=== PATIENT | male | born 1990 | race Caucasian/White ===

== ENCOUNTER 2017-03-23 01:28 | Emergency (ER) | payer OTHER ==
[~2017-03-23 01:28] MED LIST: PROZ20CA OR; PROZAC PO; SUBO8TA PO; TRAZ100T OR; TRAZ50TA OR; TRAZ50TA2 PO
[2017-03-23 04:18] LABS: ANION GAP 7 MEQ/L (8-16); BLOOD UREA NITROGEN 10 MG/DL (7-18); CALCIUM LEVEL 9.1 MG/DL (8.5-10.1); CARBON DIOXIDE LEVEL 27 MEQ/L (21-32); CHLORIDE LEVEL 110 MEQ/L (98-107); CREATININE FOR GFR 1.05 MG/DL (0.70-1.30); GLOMERULAR FILTRATION RATE > 60.0 (>60); GLUCOSE, FASTING 85 MG/DL (70-105); POTASSIUM SERUM 4.2 MEQ/L (3.5-5.1); SODIUM LEVEL 144 MEQ/L (136-145)
[2017-03-23 04:19] LABS: ABG BASE EXCESS -1.2 (-2.0-2.0); ABG HCO3 24.5 MEQ/L (22.0-26.0); ABG PARTIAL PRESSURE CO2 44.3 mmHg (35.0-45.0); ABG PARTIAL PRESSURE O2 75.5 mmHg (75.0-100.0); ABG STANDARD HCO3 23.4 MEQ/L (22.0-26.0); ABG TOTAL CO2 25.8 MEQ/L (22.0-29.0)
[2017-03-23 04:21] LABS: MEAN CORPUSCULAR VOLUME 83.2 fl (80.0-96.0); WHITE BLOOD COUNT 6.6 K/mm3 (4.0-10.0)
[2017-03-23 04:22] LABS: BASO % 0.5 % (0.0-1.0); LYMPH % 30.3 % (24.0-44.0); MEAN CORPUSCULAR HEMOGLOBIN 28.6 pg (27.0-33.0); MEAN CORPUSCULAR HGB CONC 34.3 g/dl (32.0-36.5); MONO % 6.5 % (0.0-5.0); NEUTROPHILS # 3.9 K/mm3 (1.8-7.7); NEUTROPHILS % 58.7 % (36.0-66.0); RED CELL DISTRIBUTION WIDTH 12.5 % (11.5-14.5)
[2017-03-23 04:23] LABS: EOS # 0.1 K/mm3 (0.0-0.50); MONO # 0.4 K/mm3 (0.0-0.8)
--- NOTE | 2017-03-23 05:07 | ED PDOC ---
Post-Departure Follow-Up This record was completed partially or completely on paper due to electronic EMR downtime. Please see the scanned paper chart attached. Citlali Collier MD Mar 23, 2017 05:07
[2017-03-23] MEDS ORDERED: METAL LOCK LOOP XX ONE (05:08)
[2017-03-23 05:56] LABS: METHADONE URINE NEGATIVE (NEGATIVE)
--- NOTE | 2017-03-23 19:54 | ECGEPIP ---
Stationary ECG Study [facility] Test Date: 2017-03-23 Pat Name: DEX CLEARY Department: Room: - Gender: M [employer]: XEN[place] : 1990 Requested By: JENN Sesay Order Number: [id number] Reading MD: Chuy Lama Measurements Intervals Talent Rate: 81 P: 8 VA: 162 QRS: 19 QRSD: 101 T: -12 QT: 359 QTc: 417 Interpretive Statements SINUS RHYTHM NONSPECIFIC T-WAVE ABNORMALITY Slower rate but otherwise unchanged from 06/02/14. Electronically Signed On 03-23-2017 19:54:34 EDT by Chuy Lama
--- NOTE | 2017-03-24 13:49 | REPUSA ---
CLINICAL HISTORY: Altered level of consciousness. TECHNIQUE: Multiple axial brain CT scan sections were obtained from base to vertex without contrast a dministration. COMMENTS: The study shows normal configuration of sella turcica. There are no intra or extra-axial collections. There is no mass effect or midline shift. There is no evidence of hematoma formation. No hydrocephal us is present. No abnormal calcifications are noted. No significant abnormalities are seen either in the posterior fossa or supratentorial compartment. The sinuses and mastoid air cells are patent. IMPRESSION: No evidence of acute intracranial pathology. Thank you for your kind referral of this patient.
== END 2017-03-23 12:19 | disposition home or self-care (01) ==
LOC: M ED 01:28
DX: T42.4X1A Poisoning by benzodiazepines, accidental (unintentional), initial encounter (principal); T40.4X1A Poisoning by other synthetic narcotics, accidental (unintentional), initial encounter; Y92.9 Unspecified place or not applicable; Y99.9 Unspecified external cause status; Y93.9 Activity, unspecified; Z79.899 Other long term (current) drug therapy

== ENCOUNTER → 2017-05-05 | Outpatient (REF) | payer OTHER | LOC: M WUC 19:08 | PROVIDERS: ATTEND Physician Assistant | DX: J02.9 Acute pharyngitis, unspecified (principal) ==

== ENCOUNTER 2017-09-03 23:35 | Emergency (ER) | payer OTHER, BC, MEDICAID ==
[2017-09-04] MEDS ORDERED: KETOROLAC TROMETHAMINE 10 MG TAB PO (02:30)
[2017-09-04] MEDS: KETOROLAC 60 MG/2 ML VIAL (J1885) IM (03:00)
== END 2017-09-04 03:52 | disposition home or self-care (01) ==
LOC: M ED 23:35
DX: S70.02XA Contusion of left hip, initial encounter (principal); S70.12XA Contusion of left thigh, initial encounter; W00.9XXA Unspecified fall due to ice and snow, initial encounter; Y92.511 Restaurant or cafe as the place of occurrence of the external cause; Y93.89 Activity, other specified; Y99.0 Civilian activity done for income or pay; F17.210 Nicotine dependence, cigarettes, uncomplicated; F11.90 Opioid use, unspecified, uncomplicated; Z79.899 Other long term (current) drug therapy
CPT/HCPCS: J1885

== ENCOUNTER → 2017-09-29 | Outpatient (REF) | payer OTHER ==
[2017-09-29 13:32] LABS: BASO % 0.3 % (0.0-1.0); EOS % 0.6 % (0.0-3.0); HEMOGLOBIN 16.3 g/dl (14.0-18.0); IMMATURE GRANULOCYTE % 0.3 % (0-0); LYMPH # 1.5 10^3/uL (1.5-6.5); LYMPH % 21.7 % (24.0-44.0); MEAN CORPUSCULAR HEMOGLOBIN 27.6 pg (27.0-33.0); MEAN CORPUSCULAR VOLUME 81.4 fl (80.0-96.0); MONO # 0.6 10^3/uL (0.0-0.8); MONO % 8.7 % (0.0-5.0); NEUTROPHILS # 4.6 10^3/uL (1.8-7.7); NEUTROPHILS % 68.4 % (36.0-66.0); PLATELET COUNT, AUTOMATED 225 10^3/uL (150-450); RED CELL DISTRIBUTION WIDTH 12.2 % (11.5-14.5); WHITE BLOOD COUNT 6.7 10^3/uL (4.0-10.0)
[2017-09-29 14:13] LABS: ALBUMIN 4.3 GM/DL (3.2-5.2); ALBUMIN/GLOBULIN RATIO 1.34 (1.00-1.93); ALKALINE PHOSPHATASE 99 U/L (45-117); ALT/SGPT 20 U/L (12-78); ANION GAP 9 MEQ/L (8-16); AST/SGOT 16 U/L (7-37); BILIRUBIN,TOTAL 0.4 MG/DL (0.2-1.0); BLOOD UREA NITROGEN 9 MG/DL (7-18); CARBON DIOXIDE LEVEL 28 MEQ/L (21-32); CHLORIDE LEVEL 103 MEQ/L (98-107); CREATININE FOR GFR 0.83 MG/DL (0.70-1.30); GLOMERULAR FILTRATION RATE > 60.0 (>60); GLUCOSE, FASTING 79 MG/DL (70-100); SODIUM LEVEL 140 MEQ/L (136-145); TOTAL PROTEIN 7.5 GM/DL (6.4-8.2)
[2017-09-30 10:02] LABS: HEPATITIS B SURFACE ANTIGEN NEGATIVE (NEGATIVE)
[2017-09-30 10:13] LABS: HEPATITIS B SURFACE ANTIBODY POSITIVE (POSITIVE)
[2017-09-30 10:28] LABS: HIV 1&2 SCREEN CENTAUR NEGATIVE (NEGATIVE)
[2017-10-03 14:12] LABS: ALPHA 2-MACROGLOBULIN 205 mg/dL (110-276); ALT 14 IU/L (0-55); APOLIPOPROTEIN A-1 116 mg/dL (101-178); GGT 21 IU/L (0-65); HAPTOGLOBIN 173 mg/dL (34-200); HEPATITIS C QUANTITATION HCV Not Detected IU/mL (.); NECROINFLAM SCORE 0.03 (0.00-0.17); NECROINFLAMM GRADE A0-No activity (.); TOTAL BILIRUBIN 0.3 mg/dL (0.0-1.2)
== END ==
LOC: M SFHCPLAZ 11:08
DX: B19.21 Unspecified viral hepatitis C with hepatic coma (principal)
CPT/HCPCS: 83010

== ENCOUNTER → 2017-09-30 | Outpatient (CLI) | payer OTHER ==
[2017-09-30 13:37] LABS: BASO % 0.3 % (0.0-1.0); EOS % 0.6 % (0.0-3.0); IMMATURE GRANULOCYTE % 0.3 % (0-0); LYMPH # 1.7 10^3/uL (1.5-6.5); LYMPH % 24.9 % (24.0-44.0); MEAN CORPUSCULAR HEMOGLOBIN 27.8 pg (27.0-33.0); MEAN CORPUSCULAR HGB CONC 34.1 g/dl (32.0-36.5); MEAN CORPUSCULAR VOLUME 81.6 fl (80.0-96.0); MONO # 0.8 10^3/uL (0.0-0.8); NEUTROPHILS # 4.3 10^3/uL (1.8-7.7); NEUTROPHILS % 62.9 % (36.0-66.0); PLATELET COUNT, AUTOMATED 197 10^3/uL (150-450); RED BLOOD COUNT 5.39 10^6/uL (4.30-6.10); RED CELL DISTRIBUTION WIDTH 12.4 % (11.5-14.5); WHITE BLOOD COUNT 6.8 10^3/uL (4.0-10.0)
[2017-09-30 14:17] LABS: HEPATITIS B SURFACE ANTIBODY POSITIVE (POSITIVE)
[2017-09-30 14:18] LABS: ALBUMIN 4.1 GM/DL (3.2-5.2); ALBUMIN/GLOBULIN RATIO 1.37 (1.00-1.93); ALKALINE PHOSPHATASE 93 U/L (45-117); ALT/SGPT 19 U/L (12-78); ANION GAP 7 MEQ/L (8-16); AST/SGOT 14 U/L (7-37); BILIRUBIN,TOTAL 0.5 MG/DL (0.2-1.0); BLOOD UREA NITROGEN 10 MG/DL (7-18); CALCIUM LEVEL 8.9 MG/DL (8.5-10.1); CARBON DIOXIDE LEVEL 30 MEQ/L (21-32); CHLORIDE LEVEL 102 MEQ/L (98-107); CREATININE FOR GFR 0.84 MG/DL (0.70-1.30); GLOMERULAR FILTRATION RATE > 60.0 (>60); GLUCOSE, FASTING 79 MG/DL (70-100); SODIUM LEVEL 139 MEQ/L (136-145); TOTAL PROTEIN 7.1 GM/DL (6.4-8.2)
[2017-09-30 14:27] LABS: HEPATITIS B SURFACE ANTIGEN NEGATIVE (NEGATIVE)
[2017-09-30 14:55] LABS: HIV 1&2 SCREEN CENTAUR NEGATIVE (NEGATIVE)
[2017-10-05 00:06] LABS: HEPATITIS C QUANTITATION HCV Not Detected IU/mL (.)
[2017-10-06 08:06] LABS: ALPHA 2-MACROGLOBULIN 189 mg/dL (110-276); ALT 12 IU/L (0-55); APOLIPOPROTEIN A-1 109 mg/dL (101-178); FIBROSIS SCORE 0.09 (0.00-0.21); GGT 19 IU/L (0-65); HAPTOGLOBIN 178 mg/dL (34-200); NECROINFLAM SCORE 0.03 (0.00-0.17); NECROINFLAMM GRADE A0-No activity (.); TOTAL BILIRUBIN 0.3 mg/dL (0.0-1.2)
== END ==
LOC: M LAB 12:27
DX: B19.21 Unspecified viral hepatitis C with hepatic coma (principal)
CPT/HCPCS: 84460

== ENCOUNTER 2018-02-26 22:35 | Emergency (ER) | payer OTHER ==
[2018-02-26] MEDS: AMOXICILLIN 500 MG CAP PO (23:44)
[2018-02-26] MEDS: NORCO 5/325MG TABLET (BULK FOR ED) PO (23:44)
== END 2018-02-27 00:10 | disposition home or self-care (01) ==
LOC: M ED 02-27 00:10
DX: K02.9 Dental caries, unspecified (principal); K08.89 Other specified disorders of teeth and supporting structures; F17.210 Nicotine dependence, cigarettes, uncomplicated
CPT/HCPCS: 99282

== ENCOUNTER 2018-05-17 15:00 | Outpatient (RCR) | payer MEDICAID | END 2018-06-04 | LOC: M OUTALCOH 05-23 16:00 | DX: F13.10 Sedative, hypnotic or anxiolytic abuse, uncomplicated (principal); F11.20 Opioid dependence, uncomplicated; F17.200 Nicotine dependence, unspecified, uncomplicated ==

== ENCOUNTER 2018-06-06 16:00 | Outpatient (RCR) | payer MEDICAID | END 2018-07-05 | LOC: M OUTALCOH 06-13 16:00 | DX: F13.10 Sedative, hypnotic or anxiolytic abuse, uncomplicated (principal); F11.20 Opioid dependence, uncomplicated; F17.200 Nicotine dependence, unspecified, uncomplicated ==

== ENCOUNTER 2018-07-11 11:27 | Outpatient (RCR) | payer MEDICAID | END 2018-08-04 | LOC: M OUTALCOH 07-18 11:00 | DX: F13.10 Sedative, hypnotic or anxiolytic abuse, uncomplicated (principal); F11.20 Opioid dependence, uncomplicated; F17.200 Nicotine dependence, unspecified, uncomplicated ==

== ENCOUNTER 2019-02-26 16:05 | Emergency (ER) | payer MEDICAID, OTHER ==
[~2019-02-26] VITALS: Ht 180.3 cm; Wt 109.1 kg
[~2019-02-26 16:05] MED LIST changes: +AUGM875T28 PO; +HYDR-3715 PO
[2019-02-26] MEDS ORDERED: SUBO8MIS (16:16)
[2019-02-26] MEDS ORDERED: IBUP200C25 PO (16:16)
[2019-02-26] MEDS ORDERED: ACET500T15 PO (16:16)
[2019-02-26] MEDS ORDERED: LIDOCAINE 2% MDV 20 ML VIAL SC ONE (19:15)
[2019-02-26] MEDS ORDERED: AUGMENTIN 875 MG TAB PO ONE (19:15)
[2019-02-26 19:24] VITALS: BP 118/68
[2019-02-26] MEDS ORDERED: AUGM875T28 PO (19:30)
[2019-02-26] MEDS ORDERED: IBUP80TA PO (19:30)
[2019-02-26] MEDS ORDERED: LIDO1SOL8 PO (19:32)
== END 2019-02-26 19:40 | disposition home or self-care (01) ==
LOC: M ED 16:05
DX: S02.5XXA Fracture of tooth (traumatic), initial encounter for closed fracture (principal); K04.7 Periapical abscess without sinus; X58.XXXA Exposure to other specified factors, initial encounter; Y92.89 Other specified places as the place of occurrence of the external cause; F17.200 Nicotine dependence, unspecified, uncomplicated; Z79.899 Other long term (current) drug therapy

== ENCOUNTER → 2019-07-11 | Outpatient (CLI) | payer MEDICAID ==
[~2019-07-11] MED LIST changes: +ACET500T15 PO; +IBUP200C25 PO; +IBUP80TA PO; +LIDO1SOL8 PO; +SUBO8MIS
== END ==
LOC: M OUTALCOH 09:59
PROVIDERS: ATTEND Psychiatry & Neurology Psychiatry
DX: F12.20 Cannabis dependence, uncomplicated (principal)

== ENCOUNTER 2019-07-30 14:00 | Outpatient (RCR) | payer MEDICAID | END 2019-08-04 | LOC: M OUTALCOH 14:00 | PROVIDERS: ATTEND Psychiatry & Neurology Psychiatry | DX: F11.20 Opioid dependence, uncomplicated (principal); F17.200 Nicotine dependence, unspecified, uncomplicated; F12.10 Cannabis abuse, uncomplicated ==

== ENCOUNTER 2019-09-03 14:00 | Outpatient (RCR) | payer MEDICAID | END 2019-09-04 | LOC: M OUTALCOH 14:00 | PROVIDERS: ATTEND Psychiatry & Neurology Psychiatry | DX: F11.20 Opioid dependence, uncomplicated (principal); F12.10 Cannabis abuse, uncomplicated; F17.200 Nicotine dependence, unspecified, uncomplicated ==

== ENCOUNTER 2019-10-04 11:00 | Outpatient (RCR) | payer MEDICAID | END 2019-10-05 | LOC: M OUTALCOH 11:00 | PROVIDERS: ATTEND Psychiatry & Neurology Psychiatry | DX: F11.20 Opioid dependence, uncomplicated (principal); F12.10 Cannabis abuse, uncomplicated; F17.200 Nicotine dependence, unspecified, uncomplicated ==

== ENCOUNTER 2019-10-12 10:01 | Outpatient (RCR) | payer MEDICAID ==
[~2019-10-12 10:01] MED LIST changes: -LIDO1SOL8 PO; +LIDO2SOL17 PO
== END 2019-11-03 ==
LOC: M OUTALCOH 10:01
PROVIDERS: ATTEND Psychiatry & Neurology Addiction Medicine
DX: F11.21 Opioid dependence, in remission (principal); F17.200 Nicotine dependence, unspecified, uncomplicated; F12.10 Cannabis abuse, uncomplicated